=== PATIENT | female | born 1980 | race Caucasian/White ===

== ENCOUNTER 2021-06-13 13:55 | Emergency (ER) | payer OTHER ==
[2021-06-13] MEDS ORDERED: ZOFRAN4 MG PO (17:27)
[2021-06-13] MEDS ORDERED: ZYRTEC-D TABLE1 EACH PO (17:27)
[2021-06-13] MEDS ORDERED: NAPROSYN500 MG PO (17:27)
== END 2021-06-13 17:49 | disposition home or self-care (01) ==
LOC: ER1 13:55
DX: J06.9 Acute upper respiratory infection, unspecified (principal); R19.7 Diarrhea, unspecified; M25.562 Pain in left knee; Z90.49 Acquired absence of other specified parts of digestive tract; Z90.710 Acquired absence of both cervix and uterus; F17.200 Nicotine dependence, unspecified, uncomplicated; Z20.822 Contact with and (suspected) exposure to COVID-19
CPT/HCPCS: 73564; 96372; 99284; J1885; U0002

== ENCOUNTER 2021-09-30 20:39 | Emergency (ER) | payer OTHER ==
[~2021-09-30 20:39] MED LIST: NAPROSYN500 MG PO; ZOFRAN4 MG PO; ZYRTEC-D TABLE1 EACH PO
[2021-09-30] MEDS ORDERED: MUCINEX D ER 11 EACH PO (21:48)
[2021-09-30] MEDS ORDERED: IBU600 MG PO (21:50)
[2021-09-30] MEDS ORDERED: ZOFRAN ODT 4 MG4 MG GT (21:50)
== END 2021-09-30 21:53 | disposition home or self-care (01) ==
LOC: ER1 20:39
DX: U07.1 COVID-19 (principal); B34.9 Viral infection, unspecified; F17.210 Nicotine dependence, cigarettes, uncomplicated
CPT/HCPCS: 99283; U0003

== ENCOUNTER 2022-03-29 09:53 | Emergency (ER) | payer OTHER ==
[~2022-03-29 09:53] MED LIST changes: +IBU600 MG PO; +MUCINEX D ER 11 EACH PO; +ZOFRAN ODT 4 MG4 MG GT
[2022-03-29 11:28] LABS: HEMOGLOBIN 14.6 gm/dl (12.3-15.3); RED BLOOD COUNT 4.38 M/UL (4.00-5.10); WHITE BLOOD COUNT 9.9 K/UL (4.5-11.0)
[2022-03-29 11:48] LABS: BUN/CREATININE RATIO 25 (0-10)
[2022-03-29] MEDS ORDERED: AMOX TR-K CLV1 EAC4 PO (12:46)
== END 2022-03-29 12:53 | disposition home or self-care (01) ==
LOC: ER1 09:53
PROVIDERS: Nurse Practitioner
DX: K04.7 Periapical abscess without sinus (principal); Z90.49 Acquired absence of other specified parts of digestive tract; F17.290 Nicotine dependence, other tobacco product, uncomplicated; Z20.822 Contact with and (suspected) exposure to COVID-19
CPT/HCPCS: 0240U; 80053; 85025; 99283

== ENCOUNTER → 2022-04-29 | Outpatient (CLI) | payer OTHER ==
[~2022-04-29] MED LIST changes: +AMOX TR-K CLV1 EAC4 PO
== END ==
LOC: KOH-I 08:46
DX: M54.50 Low back pain, unspecified (principal); M47.816 Spondylosis without myelopathy or radiculopathy, lumbar region
CPT/HCPCS: 72100; 73502